=== PATIENT | female | born 1965 | race Hispanic/Latino ===

== ENCOUNTER 2017-08-31 08:35 | Emergency (ER) | payer OTHER ==
[2017-08-31 08:35] VITALS: BMI 30.1
[2017-08-31 08:47] VITALS: BP 170/85; PULSE 69; RESP 18; TEMP 98; O2SAT 100
[2017-08-31] MEDS ORDERED: Naproxen 550 mg Tab PO STA (09:01)
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
== END 2017-08-31 09:23 | disposition home or self-care (01) ==
LOC: ED 08:35
DX: M54.2 Cervicalgia (principal); V89.2XXA Person injured in unspecified motor-vehicle accident, traffic, initial encounter; I10 Essential (primary) hypertension; E03.9 Hypothyroidism, unspecified